=== PATIENT | female | born 1990 | race Caucasian/White ===

== ENCOUNTER → 2022-07-30 07:18 | Outpatient (CLI) | payer BC, SELFPAY ==
--- NOTE | 2022-07-30 07:18 | US_ITS ---
FINAL REPORT CLINICAL HISTORY: Polycystic Ovaries COMPARISON: none FINDINGS: Transvaginal sonographic images of the pelvis were obtained. The uterus is anteverted and measures 7.3 x 3.3 x 4.4 cm. 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 The endometrium measures 0.8 cm, which is within normal limits. No uterine mass is identified. The right ovary measures 3.1 cm in length and left ovary measures 2.3 cm in length. Normal blood flow seen to the ovaries. Multiple small follicles are present in the bilateral ovaries. There is no evidence of free fluid. IMPRESSION: Multiple small follicles in bilateral ovaries. Reviewed, Interpreted and Dictated by Steve Kennedy MD Transcribed by Priscila Machado Authenticated and [facility]
== END ==
PROVIDERS: PCP Family Medicine; Visit Provider Nurse Practitioner Obstetrics & Gynecology
DX: E28.2 Polycystic ovarian syndrome (principal)
CPT/HCPCS: 76830

== ENCOUNTER → 2022-07-30 07:54 | Outpatient (CLI) | payer BC, SELFPAY ==
[2022-07-30 08:12] LABS: Basophils % 0.6 % (0.1-2.0); Eosinophils # 0.2 K/mm3 (0.0-0.4); Hematocrit 43.1 % (37.0-47.0); Hemoglobin 14.4 g/dL (12.2-16.2); Lymphocytes # 1.4 K/mm3 (0.7-4.5); Lymphocytes % 26.3 % (10-50); Mean Corpuscular HGB Conc 33.5 g/dL (31.8-35.4); Mean Corpuscular Hemoglobin 31.7 pg (27.0-31.2); Mean Corpuscular Volume 94.6 fl (81-99); Monocytes # 0.3 K/mm3 (0.1-1.0); Monocytes % 6.2 % (1.7-9.3); Neutrophils # 3.3 K/mm3 (1.8-7.8); Neutrophils % 63.9 % (37.0-80.0); Platelet Count 295 K/mm3 (142-424); Red Blood Count 4.55 M/mm3 (4.20-5.40); Red Cell Distribution Width 12.6 % (11.5-17.5); White Blood Count 5.2 K/mm3 (4.8-10.8)
[2022-07-30 08:49] LABS: Alanine Aminotransferase 38 U/L (12-78); Albumin Level 3.8 g/dl (3.5-5.0); Albumin/Globulin Ratio 1.3 (1.1-1.8); Alkaline Phosphatase 77 U/L (38-126); Anion Gap 13.1 mEq/L (5-15); Aspartate Amino Transferase 35 U/L (14-36); Bilirubin,Total 0.3 mg/dl (0.2-1.3); Blood Urea Nitrogen 9 mg/dl (7-17); Calcium 8.7 mg/dl (8.4-10.2); Carbon Dioxide 27 mmol/L (22.0-30.0); Chloride 102 mmol/L (98-107); Estimated Glomerular Filt Rate 98 ml/min (>60); GFR (African American) 119 ML/MIN (>60); Glucose 97 mg/dl (74-100); Potassium 4.1 mmoL/L (3.5-5.1); Sodium 138 mmol/L (136-145); Total Protein,Serum 6.8 g/dl (6.3-8.2)
[2022-07-30 09:02] LABS: Triiodothryronine (T3) Uptake 29 % (23.5-40.5)
[2022-07-30 09:16] LABS: Thyroid Stimulating Hormone 2.21 uIU/mL (0.465-4.68)
[2022-07-30 09:41] LABS: Free Thyroxine Index 2.5 ug/dL (5.93-13.13); T4 (Thyroxine) 8.6 ug/dl (5.53-11.0)
[2022-07-31 08:21] LABS: FSH 4.3 mIU/mL (.); LH 22.5 mIU/mL (.)
[2022-07-31 11:29] LABS: Insulin Level Total 21.4 uIU/mL (2.6-24.9)
== END ==
PROVIDERS: PCP Family Medicine; Visit Provider Nurse Practitioner Obstetrics & Gynecology
DX: E28.2 Polycystic ovarian syndrome (principal)
CPT/HCPCS: 36415; 80053; 83001; 83002; 83036; 83525; 84436; 84443; 84479; 85025